=== PATIENT | male | born 1980 | race Caucasian/White ===

== ENCOUNTER 2017-10-03 10:11 | Emergency (ER) | payer BC, OTHER ==
[~2017-10-03] VITALS: Ht 182.9 cm; Wt 102.1 kg
[2017-10-03 10:36] VITALS: BP 107/82
[2017-10-03] MEDS ORDERED: TDAP [DIPH/PERTUSSIS/TET] 0.5 ML VIAL IM ONE ×2 (11:37→12:00)
== END 2017-10-03 14:23 | disposition home or self-care (01) ==
LOC: ER 10:12
DX: S61.412A Laceration without foreign body of left hand, initial encounter (principal); W26.8XXA Contact with other sharp object(s), not elsewhere classified, initial encounter; Y93.89 Activity, other specified; Y92.89 Other specified places as the place of occurrence of the external cause; Y99.8 Other external cause status
CPT/HCPCS: 12002; 73130; 90471; 90715; 99284; A4606; A6402 ×2; Z7610